=== PATIENT | male | born 1980 | race African-American/Black ===

== ENCOUNTER 2017-10-16 07:21 | Emergency (ER) | payer OTHER ==
[~2017-10-16] VITALS: Ht 177.8 cm; Wt 83.9 kg
--- NOTE | ~2017-10-16 | EKG ---
[place] [address] [facility] [place] [address] ELECTROCARDIOGRAM REPORT Name: WALKER SOLORZANO Room #: 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 : 1980 Requested By: Abdias Ferreira Order Number: [id number] MD: Juan Mondragon Measurements Intervals [place] Rate: 102 P: 56 NV: 147 QRS: 61 QRSD: 81 T: -1 QT: 339 QTc: 442 Interpretive Statements Sinus tachycardia Probable left atrial enlargement Probable left ventricular hypertrophy Borderline T abnormalities, inferior leads No previous ECG available for comparison Electronically Signed On 10-16-2017 8:18:35 CDT by Juan Mondragon [email or web address] <ELECTRONICALLY SIGNED> By: Juan Mondragon MD 10/16/17817 0729 8 Juan Mondragon MD /DARSHAN
[~2017-10-16 07:21] MED LIST: IBUPROFEN 600600 M1 PO
[2017-10-16 07:55] LABS: ABSOLUTE NEUTROPHILS 5.2 thou/uL (1.4-8.2); BASOPHILS 0.8 % (0.0-2.0); EOSINOPHILS 0.3 % (0.0-3.0); HEMATOCRIT 45.6 % (42.0-52.0); HEMOGLOBIN 15.3 gm/dL (14.0-18.0); LYMPHOCYTES 26.2 % (24.0-44.0); MCHC 33.6 g/dL (28.0-37.0); MCV 92.3 fL (80.0-100.0); PLATELET COUNT 316 thou/uL (150-400); POLYS 66.7 % (36.0-66.0); RBC 4.94 mil/uL (4.50-6.00); RDW 13.4 % (10.5-14.5); WBC 7.8 thou/uL (4.0-11.0)
[2017-10-16 08:03] LABS: ANION GAP 11 mmol/L (7-16); BUN 11 mg/dL (7-18); CALCIUM 9.8 mg/dL (8.5-10.1); CHLORIDE 106 mmol/L (98-107); CO2 25 mmol/L (21-32); CREATININE 1.2 mg/dL (0.7-1.3); GLUCOSE 106 mg/dL (74-106); POTASSIUM 3.5 mmol/L (3.5-5.1); SODIUM 142 mmol/L (136-145)
[2017-10-16 08:12] LABS: TROPONIN-I < 0.04 ng/mL (<0.06)
[2017-10-16 09:36] VITALS: BP 141/76
== END 2017-10-16 09:39 | disposition home or self-care (01) ==
LOC: ER 07:21
PROVIDERS: Emergency Medicine
DX: R07.89 Other chest pain (principal); R03.0 Elevated blood-pressure reading, without diagnosis of hypertension; E04.1 Nontoxic single thyroid nodule; R91.1 Solitary pulmonary nodule

== ENCOUNTER 2018-12-03 08:35 | Emergency (ER) | payer BC, OTHER ==
[~2018-12-03] VITALS: Ht 177.8 cm; Wt 83.9 kg
[2018-12-03 08:36] VITALS: BP 134/84
== END 2018-12-03 09:14 | disposition home or self-care (01) ==
LOC: ER 08:35
DX: R51 Headache (principal); H53.8 Other visual disturbances; M54.2 Cervicalgia

== ENCOUNTER 2019-10-07 07:07 | Emergency (ER) | payer BC ==
[~2019-10-07] VITALS: Ht 177.8 cm; Wt 81.7 kg
[2019-10-07 08:09] LABS: BASOPHILS 1.4 % (0.0-2.0); EOSINOPHILS 1.2 % (0.0-3.0); HEMATOCRIT 45.6 % (42.0-52.0); HEMOGLOBIN 15.2 gm/dL (14.0-18.0); LYMPHOCYTES 43.2 % (24.0-44.0); MCH 30.4 pg (26.0-34.0); MCHC 33.4 g/dL (28.0-37.0); MCV 91.2 fL (80.0-100.0); MONOCYTES 7.9 % (1.0-8.0); PLATELET COUNT 313 thou/uL (150-400); POLYS 46.3 % (36.0-66.0); RDW 13.2 % (10.5-14.5); WBC 4.4 thou/uL (4.0-11.0)
[2019-10-07 08:11] LABS: URINE BLOOD 2+ (Negative); URINE COLOR YELLOW; URINE GLUCOSE-RANDOM* NEGATIVE (Negative); URINE KETONES 2+ (Negative); URINE LEUKOCYTES-REFLEX TRACE (Negative); URINE NITRITE-REFLEX NEGATIVE (Negative); URINE PROTEIN (DIPSTICK) TRACE (Negative); URINE SPECIFIC GRAVITY >= 1.030 (1.005-1.035)
[2019-10-07 08:12] LABS: CALCIUM 9.2 mg/dL (8.5-10.1); CREATININE 1.2 mg/dL (0.7-1.3); POTASSIUM 3.4 mmol/L (3.5-5.1)
[2019-10-07 08:25] LABS: ICTOTEST (BILI CONFIRMATORY) Negative (Negative); URINE BILIRUBIN NEGATIVE (Negative); URINE CLARITY SL HAZY
[2019-10-07 08:42] LABS: CASTS None Seen /LPF (None Seen); MUCUS >6 Heavy strn/LPF (None Seen); SQUAMOUS 0-3 Few /LPF (0-3)
[2019-10-07 08:44] LABS: BACTERIA-REFLEX 1-9 Few /HPF (None Seen); CRYSTALS None Seen /LPF (None Seen); URINE RBC 3-10 Few /HPF (0-2)
[2019-10-07] MEDS ORDERED: CIPROFLOXACIN500 M1 PO (09:08)
[2019-10-07 09:15] VITALS: BP 133/80
[2019-10-09] MEDS ORDERED: AZITHROMYCIN500 MG PO (09:57)
== END 2019-10-07 09:16 | disposition home or self-care (01) ==
LOC: ER 07:07
PROVIDERS: Emergency Medicine
DX: N39.0 Urinary tract infection, site not specified (principal); R31.9 Hematuria, unspecified; F12.90 Cannabis use, unspecified, uncomplicated

== ENCOUNTER 2019-11-02 16:58 | Emergency (ER) | payer BC ==
[~2019-11-02] VITALS: Ht 175.3 cm; Wt 77.6 kg
[~2019-11-02 16:58] MED LIST changes: +AZITHROMYCIN500 MG PO; +CIPROFLOXACIN500 M1 PO
[2019-11-02] MEDS ORDERED: OMEPRAZOLE 20 M20 M1 PO (17:59)
[2019-11-02 18:01] VITALS: BP 131/83
== END 2019-11-02 18:03 | disposition home or self-care (01) ==
LOC: ER 16:58
DX: R42 Dizziness and giddiness (principal); F41.1 Generalized anxiety disorder; K21.9 Gastro-esophageal reflux disease without esophagitis; Z88.0 Allergy status to penicillin; Z79.899 Other long term (current) drug therapy

== ENCOUNTER 2019-12-05 13:28 | Emergency (ER) | payer BC ==
[~2019-12-05] VITALS: Ht 175.3 cm; Wt 79.4 kg
[~2019-12-05 13:28] MED LIST changes: +OMEPRAZOLE 20 M20 M1 PO
[2019-12-05 14:11] LABS: ABSOLUTE NEUTROPHILS 3.2 thou/uL (1.4-8.2); BASOPHILS 0.4 % (0.0-2.0); EOSINOPHILS 0.4 % (0.0-3.0); LYMPHOCYTES 38.7 % (24.0-44.0); MCH 30.7 pg (26.0-34.0); MCHC 33.4 g/dL (28.0-37.0); MCV 91.8 fL (80.0-100.0); MONOCYTES 7.2 % (1.0-8.0); PLATELET COUNT 294 thou/uL (150-400); POLYS 53.3 % (36.0-66.0); RBC 4.57 mil/uL (4.50-6.00); RDW 13.4 % (10.5-14.5); WBC 6.1 thou/uL (4.0-11.0)
[2019-12-05 14:14] LABS: CALCIUM 8.8 mg/dL (8.5-10.1); CREATININE 1.2 mg/dL (0.7-1.3); POTASSIUM 3.8 mmol/L (3.5-5.1)
[2019-12-05 14:20] LABS: ALBUMIN 3.8 g/dL (3.4-5.0); TOTAL BILIRUBIN 1.3 mg/dL (<0.1-1.0); TOTAL PROTEIN 7.2 g/dL (6.4-8.2)
[2019-12-05] MEDS ORDERED: ATIVAN0.5 M1 PO (15:19)
[2019-12-05 15:36] VITALS: BP 138/77
--- NOTE | 2019-12-06 08:59 | EKG ---
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: : 1980 Requested By: Crissy Bowen Order Number: [id number] MD: Dionte Chavez Measurements Intervals [place] Rate: 95 P: 44 NM: 155 QRS: 54 QRSD: 82 T: 27 QT: 341 QTc: 429 Interpretive Statements Sinus rhythm ST elev, probable normal early repol pattern Compared to ECG 10/16/2017 07:29:01 Sinus tachycardia no longer present T wave abnormality less prominent Electronically Signed On 12-06-2019 8:57:14 CDT by Dionte Chavez [email or web address] <ELECTRONICALLY SIGNED> By: Dionte Chavez MD, [facility] 12/06/19 0857 [id number] Dionte Chavez MD, [facility] /EPI
== END 2019-12-05 15:39 | disposition home or self-care (01) ==
LOC: ER 13:28
PROVIDERS: Physician Assistant
DX: G47.00 Insomnia, unspecified (principal); R53.83 Other fatigue; R00.2 Palpitations; K21.9 Gastro-esophageal reflux disease without esophagitis; Z79.899 Other long term (current) drug therapy; Z88.0 Allergy status to penicillin; R09.81 Nasal congestion

== ENCOUNTER 2020-02-08 23:07 | Emergency (ER) | payer BC ==
[~2020-02-08] VITALS: Ht 177.8 cm; Wt 82.1 kg
[~2020-02-08 23:07] MED LIST changes: +ATIVAN0.5 M1 PO
[2020-02-09 00:08] VITALS: BP 126/78
== END 2020-02-09 00:09 | disposition home or self-care (01) ==
LOC: ER 23:07
DX: S60.412A Abrasion of right middle finger, initial encounter (principal); K21.9 Gastro-esophageal reflux disease without esophagitis; Z88.0 Allergy status to penicillin; Z79.899 Other long term (current) drug therapy; W55.03XA Scratched by cat, initial encounter; Y93.89 Activity, other specified; Y92.89 Other specified places as the place of occurrence of the external cause; Y99.9 Unspecified external cause status